=== PATIENT | female | born 1990 | race Caucasian/White ===

== ENCOUNTER 2018-05-04 18:27 | Emergency (ER) | payer SELFPAY ==
[2018-05-04] MEDS ORDERED: Ibuprofen 800 MG TAB ONE (19:46)
--- NOTE | 2018-05-04 20:05 | RAD ---
LEFT ANKLE THREE VIEWS: 05/04/18 INDICATION: Pain, injury. FINDINGS: Mortise is intact. No fracture or dislocation. IMPRESSION: No acute osseous abnormality of the left ankle. POS: [facility]
== END 2018-05-04 19:59 | disposition home or self-care (01) ==
LOC: SCSER 18:27
DX: S93.402A Sprain of unspecified ligament of left ankle, initial encounter (principal); F41.9 Anxiety disorder, unspecified; F32.9 Major depressive disorder, single episode, unspecified; V87.8XXA Person injured in other specified noncollision transport accidents involving motor vehicle (traffic), initial encounter